=== PATIENT | male | born 1965 | race Caucasian/White ===

== ENCOUNTER 2023-04-09 04:23 | Day surgery (SDC) | payer BC, OTHER ==
[2023-04-08 10:59] VITALS: BMI 37.7
[2023-04-09 10:32] VITALS: TEMP 97.6
[2023-04-09 10:58] VITALS: RESP 18
[2023-04-09 10:59] VITALS: BP 110/79; PULSE 91
== END 2023-04-09 11:13 | disposition home or self-care (01) ==
LOC: JASU-ENDO 04:23
PROVIDERS: ATTEND Internal Medicine Gastroenterology
PROC: 0DJD8ZZ Inspection of Lower Intestinal Tract, Via Natural or Artificial Opening Endoscopic (ICD-10-PCS; principal; 2023-04-09 09:30)
DX: Z12.11 Encounter for screening for malignant neoplasm of colon (principal); K64.8 Other hemorrhoids